=== PATIENT | male | born 1940 | race Caucasian/White ===

== ENCOUNTER 2016-06-10 15:50 | Inpatient (IN) | payer MEDICARE, OTHER ==
[~2016-06-10 15:50] MED LIST: CATAPRES0.1 MG PO; LISINOPRIL40 MG PO; VERAPAMIL ER240 M1 PO
[2016-06-17 05:40] LABS: CREATININE 0.7 mg/dL (0.7-1.2); POTASSIUM 4.1 mmol/L (3.5-5.1)
[2016-06-21 05:07] LABS: BILIRUBIN NEGATIVE (NEGATIVE); BLOOD NEGATIVE Ery/uL (NEGATIVE); CLARITY CLEAR (CLEAR); COLOR YELLOW (YELLOW); GLUCOSE (U) NORMAL (NORMAL); KETONE (U) NEGATIVE (NEGATIVE); LEUKOCYTES NEGATIVE Leu/uL (NEGATIVE); NITRITE NEGATIVE (NEGATIVE); PROTEIN TRACE (LOW) mg/dL (NEGATIVE); SPECIFIC GRAVITY 1.015 (1.001-1.030); UROBILINOGEN 0.2 mg/dL (0.2-1.0)
--- NOTE | 2016-06-22 11:07 | NUR ---
PT. AND DAUGHTER ATTENDED THE [facility]. PT. HAS HOME O2, ROLLING WALKER AND A CANE. HE WANTS [facility] FOR PT/OT AND NURSING ASSESSMENT AND HEART CHECK PROGRAM. NO D/C DATE HAS BEEN SET FOR PT. AND HE IS IN AGREEMENT.
[2016-06-24 05:42] LABS: POTASSIUM 3.9 mmol/L (3.5-5.1)
--- NOTE | 2016-06-25 09:17 | NUR ---
OT WENT TO WORK WITH JE'Zurdo AND NOTED SAT WAS 84% WITH 4L OF OXYGEN, GAVE PRN DUONEB TREATMENT, WITH MASK ON TREATMENT INSTEAD OF PIPE AND SAT'S RETURNED TO 92%, WILL CONTINUE TO MONITOR
--- NOTE | 2016-06-27 06:45 | NUR ---
0620 TO PT ROOM FOR AM NEB TREATMENT. NOTED PT TO BE DUSKY IN COLOR. LABORED DUO NEB TREATMENT BEGAN, OXYGEN SATURATION OBTAINED VIA MONITOR NOTED AT 83%. OXYGEN SETTING CHECKED AT 4LITERS PER OXIMIZER. SAT SLOWLY RESPONDED TO 85%. LUNGS ASCULATATED DIMINSHED ALL LOBES. LEFT MORE PRONOUNCED DEFECIT THAN RIGHT Jose Daniel STARKS APRN NOTIFIED. ORDERS FOR ABG AND PORTABLE CHEST OBTAINED. ABG READING OF 46 P02 WITH PH AND PCO2 WNL. PER ORDER VENTURI MASK APPLIED AND ADJUSTED TO 35% WITH SAT OF 93-94% OBTAINED. PT COLOR IMPROVED AND RESTING
[2016-06-27 09:32] LABS: HCT 24.6 % (42.0-52.0); MCH 28.4 pg (25.0-31.0); MCHC 32.5 g/dL (32.0-36.0); MCV 87.2 fL (78.0-100.0); RBC 2.82 M/uL (4.70-6.00); RDW 27.7 % (11.5-14.0); WBC 7.5 K/uL (4.0-10.5)
[2016-06-27 09:33] LABS: PLT 56 K/uL (150-400)
[2016-06-27 09:54] LABS: CREATININE 0.8 mg/dL (0.7-1.2)
[2016-06-28 05:41] LABS: HCT 23.6 % (42.0-52.0); HGB 7.7 g/dl (13.2-18.0); MCH 28.2 pg (25.0-31.0); MCHC 32.6 g/dL (32.0-36.0); MCV 86.4 fL (78.0-100.0); RBC 2.73 M/uL (4.70-6.00); RDW 27.3 % (11.5-14.0); WBC 6.8 K/uL (4.0-10.5)
[2016-06-28 05:44] LABS: PLT 58 K/uL (150-400)
--- NOTE | 2016-06-28 07:05 | NUR ---
TALKED WITH DR SALDIVAR ON 06/25/16 REPORTED CXR, SHORTNESS OF AIR, PRN NEB TREATMENT, SAT'S DOWN TO 84% BUT CAME UP TO 92% AFTER TREATMENT, I ENCOURGED USE OF ISB AND ACAPELLA WHICH HE IS DOING, NO NEW ORDERS WAS GIVEN
[2016-06-28 12:19] LABS: RETICULOCYTE COUNT 1.4 % (1.0-2.0)
[2016-06-28 12:36] LABS: BILIRUBIN NEGATIVE (NEGATIVE); BLOOD TRACE-INTACT Ery/uL (NEGATIVE); CLARITY CLEAR (CLEAR); COLOR YELLOW (YELLOW); GLUCOSE (U) NORMAL (NORMAL); KETONE (U) NEGATIVE (NEGATIVE); LEUKOCYTES 1+ Leu/uL (NEGATIVE); NITRITE NEGATIVE (NEGATIVE); PROTEIN TRACE (LOW) mg/dL (NEGATIVE); UROBILINOGEN 0.2 mg/dL (0.2-1.0)
[2016-06-28 12:41] LABS: IRON 67 ug/dL (44-196); IRON % SATURATION 33 %SAT (20-50); TIBC (TOTAL IRON + UIBC) 206 U/L (228-428); UIBC 139 ug/dL (112-346)
[2016-06-28 12:55] LABS: FOLIC ACID (SERUM) 17.1 ng/mL (5.6-45.8)
[2016-06-28 13:03] LABS: BACTERIA TRACE
== END 2016-06-28 13:16 | disposition other institution (70) | DRG 291 ==
LOC: FSNU 15:50
PROVIDERS: Nurse Practitioner Adult Health; ADMIT Internal Medicine
DX: I50.31 Acute diastolic (congestive) heart failure (principal); J96.21 Acute and chronic respiratory failure with hypoxia; J18.9 Pneumonia, unspecified organism; N17.9 Acute kidney failure, unspecified; J44.1 Chronic obstructive pulmonary disease with (acute) exacerbation; Z51.89 Encounter for other specified aftercare; D64.9 Anemia, unspecified; I10 Essential (primary) hypertension; M19.90 Unspecified osteoarthritis, unspecified site; Z88.0 Allergy status to penicillin
CPT/HCPCS: 36415; 36600; 71010; 80048; 81001; 81003; 82607; 82746; 82803; 83540; 83550; 85044; 87040; 87070; 87088; 87184; 87205; 87804; 87899; 92523; 97110; 97116; 97162; 97165; 97530; 97530-GP; 97532; 97535; 97537; J1956; J2930

== ENCOUNTER 2016-06-28 12:10 | Day surgery (SDCO) | payer MEDICARE, OTHER ==
[2016-06-29 04:47] LABS: BASOPHIL 2.8 % (0-2); EOSINOPHIL 0 % (0-7); HCT 31.4 % (42.0-52.0); HGB 10.3 g/dl (13.2-18.0); LYMPHOCYTE 9.3 % (15-48); MCH 28.4 pg (25.0-31.0); MCHC 32.8 g/dL (32.0-36.0); MCV 86.5 fL (78.0-100.0); MONOCYTE 3.9 % (0-12); PLT 67 K/uL (150-400); RBC 3.63 M/uL (4.70-6.00); RDW 23.3 % (11.5-14.0); RETICULOCYTE COUNT 1.9 % (1.0-2.0); WBC 13.1 K/uL (4.0-10.5)
[2016-06-29 04:55] LABS: CREATININE 0.8 mg/dL (0.7-1.2); MAGNESIUM 1.88 mg/dL (1.40-2.10); POTASSIUM 4.4 mmol/L (3.5-5.1)
[2016-06-29 05:08] LABS: IRON 220 ug/dL (44-196); IRON % SATURATION 99 %SAT (20-50); TIBC (TOTAL IRON + UIBC) 222 U/L (228-428); UIBC 2 ug/dL (112-346)
[2016-06-29 05:12] LABS: FOLIC ACID (SERUM) 14.6 ng/mL (5.6-45.8)
[2016-06-29 05:53] LABS: INR 1.12 (0.9-1.2); PTT 30.3 SECONDS (23.2-31.4)
[2016-06-29 06:03] LABS: BAND 12 % (0-10); NEUTROPHILS(M) 49 % (41-80)
[2016-06-29 06:04] LABS: ANISOCYTOSIS SLIGHT; LYMPHOCYTE(M) 28 % (15-48); METAMYELOCYTE 4; MONOCYTE(M) 7 % (0-12); PLATELET ESTIMATE DECREASED; PLATELET MORPHOLOGY NORMAL; POIKILOCYTOSIS SLIGHT
[2016-06-30 04:06] LABS: BASOPHIL 3.4 % (0-2); EOSINOPHIL 0 % (0-7); HCT 35.6 % (42.0-52.0); HGB 11.9 g/dl (13.2-18.0); LYMPHOCYTE 7.4 % (15-48); MCH 28.8 pg (25.0-31.0); MCHC 33.4 g/dL (32.0-36.0); MCV 86.2 fL (78.0-100.0); MONOCYTE 3.2 % (0-12); RBC 4.13 M/uL (4.70-6.00); RDW 22.7 % (11.5-14.0); WBC 12.3 K/uL (4.0-10.5)
[2016-06-30 04:17] LABS: PLT 70 K/uL (150-400)
[2016-06-30 04:28] LABS: CREATININE 0.8 mg/dL (0.7-1.2); POTASSIUM 4.2 mmol/L (3.5-5.1)
== END 2016-06-30 15:45 ==
LOC: FMS 12:10
PROVIDERS: Internal Medicine; ADMIT Nurse Practitioner Adult Health
DX: D64.9 Anemia, unspecified (principal); J44.0 Chronic obstructive pulmonary disease with (acute) lower respiratory infection; J20.9 Acute bronchitis, unspecified; K74.60 Unspecified cirrhosis of liver; J96.11 Chronic respiratory failure with hypoxia; I11.0 Hypertensive heart disease with heart failure; I50.32 Chronic diastolic (congestive) heart failure; M19.90 Unspecified osteoarthritis, unspecified site; Z88.0 Allergy status to penicillin; Z87.891 Personal history of nicotine dependence; Z83.6 Family history of other diseases of the respiratory system; Z83.3 Family history of diabetes mellitus; Z79.2 Long term (current) use of antibiotics; Z79.52 Long term (current) use of systemic steroids; Z79.899 Other long term (current) drug therapy
CPT/HCPCS: 36415; 36430; 36600; 71020; 80048; 82607; 82746; 82803; 83540; 83550; 83615; 83735; 85025; 85044; 85610; 85730; 86850; 86900; 86901; 86922; 94010; 94640; 94667; 94668; 97110; 97116; 97162; 97166; 97530-GP; G0378; J0456; J1940; J1956; J2930; P9016

== ENCOUNTER 2016-06-30 15:45 | Inpatient (IN) | payer MEDICARE, OTHER ==
[2016-07-05 06:20] LABS: BASOPHIL 2.7 % (0-2); EOSINOPHIL 0.7 % (0-7); HCT 36.2 % (42.0-52.0); HGB 11.4 g/dl (13.2-18.0); LYMPHOCYTE 21.2 % (15-48); MCH 28.3 pg (25.0-31.0); MCHC 31.5 g/dL (32.0-36.0); MCV 89.8 fL (78.0-100.0); NEUTROPHIL 71.4 % (41-80); RBC 4.03 M/uL (4.70-6.00); RDW 22.2 % (11.5-14.0); WBC 9.9 K/uL (4.0-10.5)
[2016-07-05 06:48] LABS: PLT 72 K/uL (150-400)
[2016-07-07] MEDS ORDERED: NORVASC5 MG PO (14:31)
[2016-07-08] MEDS ORDERED: COZAAR 25MG TAB25 MG PO (14:29)
[2016-07-08] MEDS ORDERED: DUONEB 2.5-0.5M1 AMP INH (14:29)
[2016-07-08] MEDS ORDERED: ACETAMINOPHEN325 MG PO (14:30)
[2016-07-08] MEDS ORDERED: BENADRYL25 MG PO (14:30)
[2016-07-08] MEDS ORDERED: DULCOLAX5 MG PO (14:30)
[2016-07-08] MEDS ORDERED: SPIRIVA18 MCG INH (14:31)
[2016-07-08] MEDS ORDERED: COLACE100 MG PO (14:32)
[2016-07-08] MEDS ORDERED: LASIX40 MG PO (14:32)
[2016-07-08] MEDS ORDERED: MUCINEX600 MG PO (14:33)
[2016-07-08] MEDS ORDERED: PREDNISONE 10MG10 MG PO (14:33)
== END 2016-07-08 13:51 | disposition home health service (06) | DRG 947 ==
LOC: FSNU 15:45
PROVIDERS: ADMIT Internal Medicine
DX: R53.81 Other malaise (principal); J18.9 Pneumonia, unspecified organism; J96.10 Chronic respiratory failure, unspecified whether with hypoxia or hypercapnia; I11.0 Hypertensive heart disease with heart failure; I50.32 Chronic diastolic (congestive) heart failure; D69.6 Thrombocytopenia, unspecified; J44.0 Chronic obstructive pulmonary disease with (acute) lower respiratory infection; J44.1 Chronic obstructive pulmonary disease with (acute) exacerbation; J20.9 Acute bronchitis, unspecified; D64.9 Anemia, unspecified; Z99.81 Dependence on supplemental oxygen
CPT/HCPCS: 36415; 36600; 82270; 82803; 85025; 97110; 97116; 97162; 97166; 97530; 97530-GP; 97535